=== PATIENT | male | born 1995 | race Caucasian/White ===

== ENCOUNTER 2018-12-01 23:36 | Emergency (ER) | payer OTHER ==
[~2018-12-01] VITALS: Ht 182.9 cm; Wt 120.2 kg
[~2018-12-01 23:36] MED LIST: TAMIFLU75 MG PO
[2018-12-01] MEDS ORDERED: AMOXICILLIN 50500 MG PO (23:51)
[2018-12-01] MEDS ORDERED: LIDOCAINE VISC100 ML SWISH&SPIT (23:51)
[2018-12-01] MEDS ORDERED: ACETAMINOPHEN-1 EAC1 PO (23:51)
[2018-12-02 00:05] VITALS: BP 170/113
== END 2018-12-02 00:05 | disposition home or self-care (01) ==
LOC: M.ERS 23:36
DX: K08.89 Other specified disorders of teeth and supporting structures (principal); F17.200 Nicotine dependence, unspecified, uncomplicated